=== PATIENT | male | born 1955 | race Caucasian/White ===

== ENCOUNTER 2020-07-29 22:17 | Emergency (ER) | payer MEDICAID, MEDICARE ==
[~2020-07-29] VITALS: Ht 160 cm; Wt 66.7 kg
[2020-07-29] MEDS ORDERED: BENZOCAINE (DENTAL) 20 % SPRAY 60ML MT ONE (23:30)
[2020-07-29] MEDS ORDERED: CLINDAMYCIN 900MG IV 50 ML IV ONE (23:45)
[2020-07-30] MEDS ORDERED: ONDANSETRON HCL 4 MG/2 ML VIAL IV ONE
[2020-07-30] MEDS ORDERED: HYDROmorphone HCL 2 MG/ML VL IV ONE
[2020-07-30 01:30] VITALS: BP 117/68
== END 2020-07-30 03:13 | disposition home or self-care (01) ==
LOC: ER 22:17
DX: K05.6 Periodontal disease, unspecified (principal); K05.219 Aggressive periodontitis, localized, unspecified severity; F17.210 Nicotine dependence, cigarettes, uncomplicated
CPT/HCPCS: 70490; 96365; 96375

== ENCOUNTER 2021-11-12 20:28 | Emergency (ER) | payer MEDICARE, OTHER ==
[~2021-11-12] VITALS: Ht 185.4 cm; Wt 79.4 kg
[2021-11-12 21:02] VITALS: BP 136/80
[2021-11-12] MEDS ORDERED: HYDROcodone-ACET 10/325MG TAB PO ONE (22:15)
[2021-11-12] MEDS: AMOXICILLIN TRIHYDRATE 250 MG CAP PO ONE ×2 (22:15→22:45)
[2021-11-12] MEDS ORDERED: AMOX-277 PO (22:27)
[2021-11-12] MEDS ORDERED: HYDR-4798 PO (22:27)
[2021-11-12] MEDS ORDERED: AMOXICILLIN/CLAVUL 875 MG TAB PO ONE (23:00)
== END 2021-11-12 23:29 | disposition home or self-care (01) ==
LOC: ER 20:47
DX: K02.9 Dental caries, unspecified (principal); F17.210 Nicotine dependence, cigarettes, uncomplicated; Z90.49 Acquired absence of other specified parts of digestive tract